=== PATIENT | female | born 1990 | race Caucasian/White ===

== ENCOUNTER 2024-06-20 18:59 | Emergency (ER) | payer OTHER, SELFPAY ==
--- NOTE | ~2024-06-20 | XR_ITS ---
EXAMINATION: XR CHEST CLINICAL INFORMATION: Chest tightness. Dyspnea. COMPARISON: None available. TECHNIQUE: PA view of the chest was obtained. FINDINGS: No significant abnormality is noted involving the heart, lungs, mediastinum, bony thorax or soft tissues. XR/XR chest 1V IMPRESSION: Normal PA view of the chest. Electronically signed by: Linus Sebastian MD 06/20/2024 08:59 PM EDT RP
--- NOTE | 2024-06-20 19:07 | ECG_ITS ---
Test Reason : CP Blood Pressure : / mmHG Vent. Rate : 105 BPM Atrial Rate : 105 BPM P-R Int : 132 ms QRS Dur : 070 ms QT Int : 292 ms P-R-T Axes : 041 038 050 degrees QTc Int : 385 ms Sinus tachycardia Abnormal ECG No previous ECGs available Referred By: Generic ED Physician Electronically Signed By:AWAIS JASSO
[2024-06-20 19:21] VITALS: BP 132/87; PULSE 102; RESP 16; TEMP 37.2; O2SAT 98; BMI 29.2
[2024-06-20 20:15] LABS: MANUAL DIFF FLAG NO
[2024-06-20 20:20] LABS: Basophils Percent Auto 0.5 % (0-2); Eosinophils Percent Auto 1.1 % (0-4); Hematocrit 36.6 % (37.0-47.0); Hemoglobin 12.6 g/dl (12.0-16.0); Imm Gran Abs Auto 0.01 X10*3/uL (0.00-0.03); Imm Gran Pct Auto 0.3 % (0.0-0.4); Lymphocytes Absolute Auto 1.3 X10*3/uL (1.2-4.9); Lymphocytes Percent Auto 35.9 % (20-40); Mean Corpuscular HGB Conc 34.4 g/dl (31.0-35.0); Mean Corpuscular Hemoglobin 29.3 pg (27.0-33.0); Mean Corpuscular Volume 85.1 fL (80.0-98.0); Mean Platelet Volume 9.8 fL (9.4-12.3); Monocytes Absolute Auto 0.5 X10*3/uL (0.1-1.2); Neutrophils Absolute Auto 1.8 x10*3/uL (2.0-8.3); Neutrophils Percent Auto 49.2 % (45-73); Platelet Count 219 X10*3/uL (160-400); White Blood Count 3.7 X10*3/uL (4.8-10.8)
[2024-06-20 20:38] LABS: Anion Gap 11 (12-20); Blood Urea Nitrogen 8 mg/dL (9-16); Calcium 8.7 mg/dL (8.4-10.2); Carbon Dioxide 25 mmol/L (22-29); Chloride 106 mmol/L (96-108); Creatinine Clr Calc Pharmacy 103.9; Estimated Glomerular Filt Rate > 60; Glucose Random 110 mg/dL (60-115); Potassium 3.7 mmol/L (3.3-5.1); Sodium 138 mmol/L (135-145)
[2024-06-20 20:40] LABS: COVID-19 Test Negative (Negative); IDNOW Serial# 152EDE1D
[2024-06-20 20:41] LABS: IDNOW Serial# 08D9AD1C; Influenza A Negative (Negative); Influenza B2 Negative (Negative)
[2024-06-20 20:48] LABS: Troponin-I High Sensitivity < 2.7 ng/L (<3.5-17.0)
[2024-06-20] MEDS: Ibuprofen 600 MG TABLET PO (21:05)
[2024-06-20 23:01] VITALS: BP 111/77; PULSE 83; RESP 18; TEMP 37.2; O2SAT 99
--- NOTE | 2024-06-20 23:29 | ED.GENADULT ---
HPI - General Adult General Chief complaint: General Medical Stated complaint: Chest tightness, hx pericarditis Time Seen by Provider: 06/20/24 23:29 History of Present Illness ED Provider: Paul HERZOG narrative: The patient is a 33-year-old female who says that 2 years ago she had an episode of pericarditis after giving . She was treated and recovered. She has been doing well since then. Yesterday she says that she felt ?like I got hit with a ton of bricks. ? She says she had a lot of body aches and felt as if she had the flu. She also developed a sense of tightness in her chest and she had palpitations when she was laying down. Today she continued to have tightness in the chest and continuing to have body aches in decided that she should get checked with the an EKG. She went to an urgent care where she was referred to the emergency room. She has had no pain or swelling in her calves. No unilateral swelling. No fever, sweats, chills. She has tightness in her chest but it is not really worse when she takes a deep breath. She does not feel short of breath currently. No nausea or vomiting. Related Data Allergies Allergy/AdvReac Type Severity Reaction Status Date / Time No Known Allergies Allergy Verified 06/20/24 19:23 Review of Systems Review of Systems: Yes all other systems are reviewed and are negative [facility] Social History Social History Advance Directives: No Advance Directives Information Provided: No Physical Exam ED Vital Signs: Vital Signs - 24 hr 06/20/24 23:01 06/21/24 00:13 Temperature 99.0 F 99.0 F Pulse Rate 83 82 Respiratory Rate 18 14 Blood Pressure 111/77 107/69 Pulse Oximetry 99 98 Oxygen Delivery Method Room Air Room Air BMI result Body Mass Index 29.2 Const Other: The patient is awake, alert, pleasant, cooperative. She does not appear acutely ill. At the time that I saw her she was not tachycardic and had an oxygen saturation of 99% on room air. She looks entirely well. HENMT Other: Face is symmetrical. Mucous membranes moist. Posterior pharynx is normal. Eyes Other: Pupils are round equal, conjunctivae are clear, extraocular movements intact. Neck Other: No cervical adenopathy. No swelling. No tenderness. Chest Other: No definite reproducible chest wall tenderness. Resp Effort & Inspection: normal respiratory effort Auscultation: clear to auscultation bilaterally Cardio Rate: regular rate Rhythm: regular rhythm Heart sounds: S1 normal heart sound present and S2 normal heart sound present GI Other: Abdomen is flat, soft, and nontender. Skin Other: Skin is dry and unremarkable. Neuro Other: The patient is awake and alert with a normal mental status. Cranial nerves are intact. She moves her extremities normally. She is neurologically intact Extrem Other: no calf swelling or tenderness. No asymmetry. No edema. Medications Administered Discontinued Medications Generic Name Dose Route Start Last Admin Trade Name Freq PRN Reason Stop Dose Admin Ibuprofen 600 mg 06/20/24 21:00 06/20/24 21:05 Ibuprofen 600 Mg Tablet PO 06/20/24 21:01 600 mg ONCE ONE Administration Medical Decision Making Medical Decision Making [facility] Narrative: The patient is a 33-year-old female who came to the emergency room after 1st going to an urgent care center. She says that she had some kind of a episode a couple of years ago when she had some kind of pericarditis that has subsequently resolved. She comes to the emergency room with 2 days of flu-like symptoms. She has some tightness in her chest but she also has a sense of tightness and body aches in most of her body. She does not really have any pleuritic discomfort and she said she did not feel particularly short of breath. Clinically her description of the symptoms was not highly suggestive of a pulmonary embolism. Your testing in the emergency room showed an EKG with sinus tachycardia at 105 beats per minute. No definite acute findings otherwise. Chest x-ray Is negative. CBC shows a mildly low white count with a differential possibly consistent with a viral syndrome. Her COVID test is negative. Her influenza swab is negative. I spoke to her about possibly doing D-dimer testing to ensure she does not have a pulmonary embolism but we both agreed that her symptoms are not highly suggestive of a pulmonary embolism and therefore we did not pursue that. She seemed to be feeling somewhat better and was comfortable being discharged with an essentially negative workup. She was advised to follow up with her PCP or return to the ER if worse. Lab Data 06/20/24 20:08 06/20/24 20:08 Labs: Lab Results 06/20/24 06/20/24 Range/Units 20:08 23:13 WBC 3.7 L (4.8-10.8) X10*3/uL RBC 4.30 (4.20-5.50) X10*6/uL Hgb 12.6 (12.0-16.0) g/dl Hct 36.6 L (37.0-47.0) % MCV 85.1 (80.0-98.0) fL MCH 29.3 (27.0-33.0) pg MCHC 34.4 (31.0-35.0) g/dl RDW 12.0 (11.0-16.0) % Plt Count 219 (160-400) X10*3/uL MPV 9.8 (9.4-12.3) fL Immature Gran % (Auto) 0.3 (0.0-0.4) % Neut % (Auto) 49.2 (45-73) % Lymph % (Auto) 35.9 (20-40) % [place] % (Auto) 13.0 H (2-11) % Eos % (Auto) 1.1 (0-4) % Baso % (Auto) 0.5 (0-2) % Lymph # (Auto) 1.3 (1.2-4.9) X10*3/uL [place] # (Auto) 0.5 (0.1-1.2) X10*3/uL Eos # (Auto) 0.0 (0.0-0.4) X10*3/uL Baso # (Auto) 0.0 (0.0-0.2) X10*3/uL Abs Immat Gran (auto) 0.01 (0.00-0.03) X10*3/uL Absolute Neuts (auto) 1.8 L (2.0-8.3) x10*3/uL Absolute Nucleated RBC 0.000 (0.0-0.012) X10*3/uL Nucleated RBC % (auto) 0.0 (0.0-0.2) /100WBC Sodium 138 (135-145) mmol/L Potassium 3.7 (3.3-5.1) mmol/L Chloride 106 (96-108) mmol/L Carbon Dioxide 25 (22-29) mmol/L Anion Gap 11 L (12-20) BUN 8 L (9-16) mg/dL Creatinine 0.76 (0.5-1.4) mg/dL Estim Creat Clear Calc 103.9 Estimated GFR > 60 Random Glucose 110 (60-115) mg/dL Calcium 8.7 (8.4-10.2) mg/dL Total Bilirubin 0.4 (0.0-1.0) mg/dL Direct Bilirubin 0.1 (0.0-0.5) mg/dL AST 22 (5-31) U/L ALT 31 (0-31) U/L Alkaline Phosphatase 89 (39-117) U/L Troponin I High Sens < 2.7 (<3.5-17.0) ng/L C-Reactive Protein 1.82 H (< or = 0.50) mg/dL Total Protein 6.7 (6.5-8.0) g/dL Albumin 3.9 (3.5-5.0) g/dL Urine Color Dark Yellow Urine Appearance Clear Urine pH 5.5 (5.0-9.0) Ur Specific [place] 1.025 (1.005-1.025) Urine Protein 30 (1+) H (Neg-Trace) mg/dL Urine Glucose (UA) Negative (Negative) mg/dL Urine Ketones Trace (Negative) mg/dL Urine Blood Large (3+) H (Negative) Urine Nitrite Negative (Negative) Ur Leukocyte Esterase Negative (Negative) Urine RBC 6-10 H (0-2) /HPF Urine WBC 0-5 (0-5) /HPF Ur Squamous Epith Cells 0-2 (0-2) /HPF Urine Bacteria None Seen (None Seen) Hyaline Casts 0-2 (0-2) /LPF Urine Test NEGATIVE (NEGATIVE) COVID-19 ([place]) Negative (Negative) COVID-19 Clin Com See Note Influenza Type A ([place]) Negative (Negative) Influenza Type B ([place]) Negative (Negative) Influenza A & B Note See Note Discharge Plan Discharge Clinical Impression: Chest pain, Body aches Patient Disposition: Home, Self-Care Additional Instructions: Your screening testing in the emergency room today seems reassuring. I think it is unlikely any acutely dangerous process is at work. Please rest and take it easy over the next couple of days. Use ibuprofen and acetaminophen as needed for discomfort. Please contact your regular doctor's office on Saturday if you are not feeling better and make a follow up appointment for a 2nd opinion. If at any point you feel significantly worse, especially if you feel significantly short of breath or breathing is painful, or if you develop a fever, return to the emergency department. Referrals: Zeus Coto MD [Primary Care Provider] - (body aches, chest pains) Interventions: ED Discharge Assessment Last Done: 06/21/24 00:13 Discharge Date/Time: 06/21/24 00:21 Print Language: Macedonian
[2024-06-20 23:43] LABS: Appearance Urine Clear; Color Urine Dark Yellow; Glucose Urine UA Negative (Negative); Leukocyte Esterase Urine Negative (Negative); Nitrite Urine Negative (Negative); PH 5.5 (5.0-9.0); Specific Gravity - Urine 1.025 (1.005-1.025); UMIC TRIGGER UACC YES; Urine Blood Large (3+) (Negative); Urine Ketones Trace mg/dL (Negative); Urine Protein 30 (1+) mg/dL (Neg-Trace)
[2024-06-20 23:45] LABS: UPreg QC Valid YES; Urine Pregnancy NEGATIVE (NEGATIVE)
[2024-06-20 23:48] LABS: Bacteria Urine None Seen (None Seen); Hyaline Casts Urine 0-2 /LPF (0-2); Squamous Epithelial Cell Urine 0-2 /HPF (0-2); WBC Urine 0-5 /HPF (0-5)
[2024-06-21 00:03] LABS: C Reactive Protein 1.82 mg/dL (< or = 0.50)
[2024-06-21 00:06] LABS: Alanine Aminotransferase 31 U/L (0-31); Albumin Level 3.9 g/dL (3.5-5.0); Alkaline Phosphatase 89 U/L (39-117); Aspartate Amino Transferase 22 U/L (5-31); Bilirubin Direct 0.1 mg/dL (0.0-0.5); Bilirubin Total 0.4 mg/dL (0.0-1.0); Total Protein 6.7 g/dL (6.5-8.0)
[2024-06-21 00:13] VITALS: BP 107/69; PULSE 82; RESP 14; TEMP 37.2; O2SAT 98
== END 2024-06-21 00:21 | disposition home or self-care (01) ==
PROVIDERS: Emergency Provider Emergency Medicine; PCP Internal Medicine
DX: R07.9 Chest pain, unspecified (principal); R06.00 Dyspnea, unspecified; R00.0 Tachycardia, unspecified; Z11.52 Encounter for screening for COVID-19
CPT/HCPCS: 36415; 71045; 80048; 80076; 81001; 81025; 84484; 85025; 86140; 87502; 87635; 93005; 99284

== ENCOUNTER 2025-01-23 18:39 | Emergency (ER) | payer BC, SELFPAY ==
--- NOTE | ~2025-01-23 | US_ITS ---
CLINICAL HISTORY: bilateral lower abd pain US pelvis transabdominal and transvaginal with Doppler Comparison: CT/SR - CT ABDOMEN PELVIS W IV CON - 01/23/25 22:09 EDT Findings: Transabdominal scanning performed for overall anatomy. Transvaginal scanning performed for additional detail. Anteverted uterus is 8.8 cm length. Normal myometrium. No endometrial lesion, 11 mm thickness. Right ovary 3.1 x 2.3 x 2.5 cm. Left ovary 3.2 x 1.8 x 2.0 cm. Normal color Doppler with arterial/venous spectral tracing of both ovaries. Normal morphology of both ovaries. No large cysts or masses. Trace free fluid in the cul-de-sac. IMPRESSION: 1. Normal pelvic ultrasound with Doppler. No evidence of ovarian torsion. This document has been electronically signed by: Chavez Urbina MD on 01/23/2025 23:15:52
--- NOTE | ~2025-01-23 | CT_ITS ---
CLINICAL HISTORY: bilat lower quadrant pain, r o tuboovarian abcsess CT abdomen and pelvis with contrast Comparison: None Findings: The lung bases are clear. Bilateral breast implants. Unremarkable gallbladder and solid organs. No urolithiasis. Proximal small bowel mural thickening in the left abdomen can be seen with mild enteritis. No bowel obstruction. Prominent inguinal nodes, nonspecific. Right corpus luteum cyst. Suspect ruptured right corpus luteum cyst with trace free pelvic fluid. Normal appendix. Scattered colonic diverticulosis without diverticulitis or colitis. Trace free pelvic fluid. Circumferential bladder wall thickening. The bones are intact. Likely left Bartholin gland cysts measuring 1.3 cm. IMPRESSION: 1. Suspect ruptured right corpus luteum cyst with trace free pelvic fluid. 2. Circumferential bladder wall thickening may be related to degree of underdistention or mild cystitis. 3. Possible mild left-sided enteritis. This document has been electronically signed by: Endy Triana MD on 01/23/2025 22:46:59
[2025-01-23 18:44] VITALS: BP 129/85; PULSE 104; RESP 18; TEMP 37; O2SAT 100; BMI 29.0
--- NOTE | 2025-01-23 18:45 | ED.ABDPAIN ---
HPI - Abdominal Pain General Chief Complaint: Abdominal Pain Stated Complaint: ovarian pain Time Seen by Provider: 01/23/25 21:03 Source: patient Mode of arrival: ambulatory Limitations: no limitations History of Present Illness ED Provider: Dr. Lizzie Pressley HPI narrative: Patient comes to the emergency room complaining of vaginal discharge and bilateral lower quadrant pain. Patient states that about 2 weeks, she removed her NuvaRing . Patient states that she noted that she had a different looking discharge and shortly after started developing pain. Patient states that she has not had any fever chills, no hematuria or dysuria. Patient denies any significant malodorous odor from the vaginal discharge. Patient denies any concern for . Related Data Previous Rx's ?Medication ?Instructions ?Recorded miconazole nitrate 4 % (200 mg)-2 1 appful vaginal BEDTIME 3 days 01/23/25 % (9 gram)vaginal,prefill #24 grams appl,cream (Miconazole-3) Allergies Allergy/AdvReac Type Severity Reaction Status Date / Time No Known Allergies Allergy Verified 01/23/25 18:46 Review of Systems Review of Systems Constitutional : No Weight loss, No Fever, No Chills, No Night Sweats, No Fatigue, No Malaise ENT/Mouth : No Hearing loss, No Ear Pain, No Nasal Congestion, No Sinus Pain, No Hoarseness, No sore throat, No Rhinorrhea, No Swallowing Difficulty Eyes: No Eye Pain, No Swelling, No Redness, No Foreign Body, No Discharge, No Vision Changes Cardiovascular : No Chest Pain, No SOB, No Dyspnea on Exertion, No Orthopnea, No Edema, No Palpitations Respiratory : No Cough, No Sputum, No Wheezing, No Smoke Exposure, No Dyspnea Gastrointestinal : No Nausea, No Vomiting, No Diarrhea, No Constipation, complaining of mild bilateral lower quadrant pain Genitourinary : Complaining of copious vaginal discharge, No Dysuria, No Urinary Frequency, No Hematuria, No Urinary Incontinence, No Urgency, No Flank Pain, No Urinary Flow Changes, No Hesitancy Musculoskeletal : No joint pain, No Myalgias, No Joint Swelling Skin : No Skin Lesions, No rash Neuro : No Weakness, No Numbness, No Paresthesias, No Loss of Consciousness, No Dizziness, No Headache Psych : No Anxiety/Panic, No Depression, No SI/HI/AH/VH, No Social Issues, Heme/Lymph: No Bruising, No Bleeding,No Lymphadenopathy Endocrine : No Polyuria, No Polydipsia, No Temperature Intolerance [facility] Past Medical History Medical History ADHD Social History Social History Smoked in Last 30 Days: No Use of substances other than those prescribed or required for medical reasons: Yes Substance Use Type: Marijuana Substance Use Frequency: Daily Advance Directives: No Advance Directives Information Provided: No Patient : No Physical Exam ED Vital Signs: Vital Signs - 24 hr 01/23/25 18:44 01/23/25 20:02 01/23/25 21:56 Temperature 98.6 F 98.5 F 98.0 F Pulse Rate 104 H 87 88 Respiratory Rate 18 16 18 Blood Pressure 129/85 119/71 111/72 Pulse Oximetry 100 100 99 Oxygen Delivery Method Room Air Room Air Room Air BMI result Body Mass Index 29.0 Const Other: Appearance: Alert. Oriented X3. No acute distress. Eyes: Pupils equal, round and reactive to light. ENT: Pharynx normal. Neck: Normal inspection. Neck supple. No lymph nodes noted. No crepitus CVS: Normal heart rate and rhythm. Pulses normal. Normal S1 and S2 Respiratory: No respiratory distress. Breath sounds normal. No Wheezing. No rales : There is copious college cheese like discharge, negative general ear sign Abdomen: Soft and nontender. No rigidity. No distention. Skin: Skin warm and dry. Normal skin color. Normal skin turgor. Extremities: No lower extremity edema. No Lacerations. No Rash Neuro: Oriented X 3. No motor deficit. No sensory deficit. Moving all extremities. No slurred speech. CN 2 through 12 grossly intact Psych: calm, cooperative, normal affect Course Course Course Narrative: This is an RME performed by Neil Lemus CNP: Additional HPI, ROS, PE not included below will be deferred to primary provider. Patient is a 34-year-old female who presents to the emergency department for evaluation. She states that she noticed 1-2 weeks ago she had abnormal vaginal discharge but did not find it to be malodorous. She is not certain whether there may be any yeast infection. She does state that she had her last menstrual cycle a few weeks ago. As experiencing bilateral lower abdominal/pelvic pain right worse than left. Denies dysuria, urinary frequency. Denies concern for . She is noted to be tachycardic with pulse in the 110's, states pulse is typically high which she has attributed to her Adderall usage as well as nicotine vape Plan: labs, Urinalysis, BV panel, CT/NG, +/- pelvic examination per primary provider. Medical Decision Making Medical Decision Making [facility] Narrative: My interpretation of labs: Patient's white blood cell count 12.4, no significant abnormality in patient's chemistry, normal LFTs. Urinalysis negative for UTI, test negative Serology test results for gonorrhea, chlamydia, bacterial vaginosis and Trichomonas will not become available today Physical exam: Copious cut edge like cheese discharge. Ultrasound: Negative for torsion CT scan: Suspected ruptured right corpus luteum cyst with trace pelvic fluid, which is likely the source of patient's discomfort I discussed the above-mentioned with the patient, patient feels well, ready for discharge Differential Diagnosis Differential Diagnoses: The differential diagnosis associated with the presentation includes (Ovarian torsion, ovarian cyst, cyst rupture, candidiasis) Lab Data [facility] Lab Attestation statement: I reviewed the patient's lab results. 01/23/25 19:07 01/23/25 19:07 Labs: Lab Results 01/23/25 Range/Units 19:07 WBC 12.4 H (4.8-10.8) X10*3/uL RBC 4.58 (4.20-5.50) X10*6/uL Hgb 13.3 (12.0-16.0) g/dl Hct 39.1 (37.0-47.0) % MCV 85.4 (80.0-98.0) fL MCH 29.0 (27.0-33.0) pg MCHC 34.0 (31.0-35.0) g/dl RDW 12.1 (11.0-16.0) % Plt Count 297 D (160-400) X10*3/uL MPV 10.4 (9.4-12.3) fL Immature Gran % (Auto) 0.4 (0.0-0.4) % Neut % (Auto) 65.4 (45-73) % Lymph % (Auto) 25.6 (20-40) % [place] % (Auto) 6.1 (2-11) % Eos % (Auto) 1.8 (0-4) % Baso % (Auto) 0.7 (0-2) % Lymph # (Auto) 3.2 (1.2-4.9) X10*3/uL [place] # (Auto) 0.8 (0.1-1.2) X10*3/uL Eos # (Auto) 0.2 (0.0-0.4) X10*3/uL Baso # (Auto) 0.1 (0.0-0.2) X10*3/uL Abs Immat Gran (auto) 0.05 H (0.00-0.03) X10*3/uL Absolute Neuts (auto) 8.1 (2.0-8.3) x10*3/uL Absolute Nucleated RBC 0.000 (0.0-0.012) X10*3/uL Nucleated RBC % (auto) 0.0 (0.0-0.2) /100WBC Sodium 142 (135-145) mmol/L Potassium 3.9 (3.3-5.1) mmol/L Chloride 107 (96-108) mmol/L Carbon Dioxide 26 (22-29) mmol/L Anion Gap 13 (12-20) BUN 8 L (9-16) mg/dL Creatinine 0.68 (0.5-1.4) mg/dL Estim Creat Clear Calc 114.6 Estimated GFR > 60 Random Glucose 78 (60-115) mg/dL Calcium 9.2 (8.4-10.2) mg/dL Total Bilirubin 0.3 (0.0-1.0) mg/dL AST 27 (5-31) U/L ALT 32 H (0-31) U/L Alkaline Phosphatase 87 (39-117) U/L Total Protein 6.8 (6.5-8.0) g/dL Albumin 4.3 (3.5-5.0) g/dL Urine Color Dark Yellow Urine Appearance Clear Urine pH 6.0 (5.0-9.0) Ur Specific [place] 1.025 (1.005-1.025) Urine Protein Trace (Neg-Trace) mg/dL Urine Glucose (UA) Negative (Negative) mg/dL Urine Ketones Trace (Negative) mg/dL Urine Blood Negative (Negative) Urine Nitrite Negative (Negative) Ur Leukocyte Esterase Small (1+) H (Negative) Urine RBC 0-2 (0-2) /HPF Urine WBC 6-10 (0-5) /HPF Ur Squamous Epith Cells 6-10 (0-2) /HPF Urine Bacteria Trace (None Seen) Hyaline Casts 0-2 (0-2) /LPF Urine Yeast Present Urine Test NEGATIVE (NEGATIVE) Medications Administered Discontinued Medications Generic Name Dose Route Start Last Admin Trade Name Tetoq PRN Reason Stop Dose Admin Iohexol 85 ml 01/23/25 22:15 01/23/25 22:15 Iohexol 350 Mg/Ml 100 Ml Infus..Btl IV 01/23/25 22:16 85 ml ONCE ONE Administration Discharge Plan Discharge Clinical Impression: Rupture of cyst of right ovary, Candidiasis of genitalia in female Patient Disposition: Home, Self-Care Instructions: Ovarian Cyst (ED), Yeast Infection (ED) Additional Instructions: Please follow-up with your primary care physician tomorrow. If you have any worsening or new symptoms, please return to the emergency room or call 911 Prescriptions: New miconazole nitrate [Miconazole-3] 4 % (200 mg)- 2 % (9 gram) comb pack,prefill appl, cream 1 appful vaginal BEDTIME 3 Days Qty: 24 0RF Rx Instructions: as vaginal cream Print Language: Niuean
--- NOTE | 2025-01-23 18:48 | ECG_ITS ---
Test Reason : TACHYCARDIA Blood Pressure : */* mmHG Vent. Rate : 81 BPM Atrial Rate : 81 BPM P-R Int : 142 ms QRS Dur : 78 ms QT Int : 332 ms P-R-T Axes : 19 29 38 degrees QTcB Int : 385 ms Normal sinus rhythm Normal ECG When compared with ECG of 20-Jun-2024 19:04, No significant change was found Referred By: Nasima Lemus Electronically Signed By: YINA CLAROS
[2025-01-23 19:17] LABS: MANUAL DIFF FLAG NO
[2025-01-23 19:19] LABS: Basophils Absolute Auto 0.1 X10*3/uL (0.0-0.2); Basophils Percent Auto 0.7 % (0-2); Eosinophils Absolute Auto 0.2 X10*3/uL (0.0-0.4); Eosinophils Percent Auto 1.8 % (0-4); Hematocrit 39.1 % (37.0-47.0); Hemoglobin 13.3 g/dl (12.0-16.0); Imm Gran Abs Auto 0.05 X10*3/uL (0.00-0.03); Imm Gran Pct Auto 0.4 % (0.0-0.4); Lymphocytes Absolute Auto 3.2 X10*3/uL (1.2-4.9); Lymphocytes Percent Auto 25.6 % (20-40); Mean Corpuscular Volume 85.4 fL (80.0-98.0); Mean Platelet Volume 10.4 fL (9.4-12.3); Monocytes Absolute Auto 0.8 X10*3/uL (0.1-1.2); Monocytes Percent Auto 6.1 % (2-11); Neutrophils Absolute Auto 8.1 x10*3/uL (2.0-8.3); Neutrophils Percent Auto 65.4 % (45-73); Platelet Count 297 X10*3/uL (160-400); Red Blood Count 4.58 X10*6/uL (4.20-5.50); Red Cell Distribution Width 12.1 % (11.0-16.0); White Blood Count 12.4 X10*3/uL (4.8-10.8)
[2025-01-23 19:21] LABS: Appearance Urine Clear; Color Urine Dark Yellow; Glucose Urine UA Negative (Negative); Leukocyte Esterase Urine Small (1+) (Negative); Nitrite Urine Negative (Negative); Specific Gravity - Urine 1.025 (1.005-1.025); UMIC TRIGGER UACC YES; Urine Blood Negative (Negative); Urine Ketones Trace mg/dL (Negative); Urine Protein Trace mg/dL (Neg-Trace)
[2025-01-23 19:27] LABS: Urine Pregnancy NEGATIVE (NEGATIVE)
[2025-01-23 19:28] LABS: UPreg QC Valid YES
[2025-01-23 19:34] LABS: Bacteria Urine Trace (None Seen); Hyaline Casts Urine 0-2 /LPF (0-2); RBC Urine 0-2 /HPF (0-2); UACC Culture Trigger YES
[2025-01-23 19:38] LABS: Alanine Aminotransferase 32 U/L (0-31); Albumin Level 4.3 g/dL (3.5-5.0); Alkaline Phosphatase 87 U/L (39-117); Anion Gap 13 (12-20); Aspartate Amino Transferase 27 U/L (5-31); Bilirubin Total 0.3 mg/dL (0.0-1.0); Blood Urea Nitrogen 8 mg/dL (9-16); Calcium 9.2 mg/dL (8.4-10.2); Carbon Dioxide 26 mmol/L (22-29); Chloride 107 mmol/L (96-108); Creatinine Clr Calc Pharmacy 114.6; Estimated Glomerular Filt Rate > 60; Glucose Random 78 mg/dL (60-115); Potassium 3.9 mmol/L (3.3-5.1); Sodium 142 mmol/L (135-145); Total Protein 6.8 g/dL (6.5-8.0)
[2025-01-23 20:02] VITALS: BP 119/71; PULSE 87; RESP 16; TEMP 36.9; O2SAT 100
[2025-01-23 21:56] VITALS: BP 111/72; PULSE 88; RESP 18; TEMP 36.7; O2SAT 99
[2025-01-23] MEDS: iohexoL 350 MG/ML 100 ML INFUS..BTL 85 ML IV (22:15)
[2025-01-23 23:51] VITALS: BP 124/87; PULSE 84; RESP 16; TEMP 36.4; O2SAT 99
[2025-01-24 11:42] LABS: Bacterial Vaginosis PCR NEGATIVE (Negative); Candida Group PCR DETECTED (Not Detect); Candida glab krusei PCR NOT DETECTED (Not Detect); Trichomonas vaginalis PCR NOT DETECTED (Not Detect)
[2025-01-24 12:17] LABS: CT PCR NOT DETECTED (Not Detect.); NG PCR NOT DETECTED (Not Detect.)
== END 2025-01-24 00:10 | disposition home or self-care (01) ==
PROVIDERS: Nurse Practitioner Family; Emergency Provider Emergency Medicine; PCP Internal Medicine
DX: N83.201 Unspecified ovarian cyst, right side (principal); B37.31 Acute candidiasis of vulva and vagina; R10.2 Pelvic and perineal pain
CPT/HCPCS: 36415; 74177; 76830; 76856; 80053; 81001; 81025; 81515; 85025; 87086; 87491; 87591; 93005; 93975; 99284; 99285; Q9967

== ENCOUNTER → 2025-01-23 18:48 | Outpatient (BNV) | payer BC, SELFPAY | PROVIDERS: Emergency Provider Emergency Medicine; PCP Internal Medicine; Visit Provider Internal Medicine | DX: R00.0 Tachycardia, unspecified (principal) | CPT/HCPCS: 93010 ==

== ENCOUNTER → 2025-01-23 21:12 | Outpatient (BNV) | payer BC, SELFPAY | PROVIDERS: Emergency Provider Emergency Medicine; PCP Internal Medicine; Visit Provider Radiology Diagnostic Radiology | DX: R10.9 Unspecified abdominal pain (principal) | CPT/HCPCS: 93975 ==

== ENCOUNTER 2025-03-29 11:30 | Emergency (ER) | payer BC, SELFPAY ==
[2025-03-29 11:36] VITALS: BP 106/70; PULSE 98; RESP 16; TEMP 36.9; O2SAT 97; BMI 26.5
--- NOTE | 2025-03-29 11:36 | ED_ITS ---
HPI - Nausea/Vomiting/Diarrhea General Chief complaint: Nausea/Vomiting/Diarrhea Stated complaint: Vomiting Time Seen by Provider: 03/29/25 13:22 Related Data Previous Rx's ?Medication ?Instructions ?Recorded miconazole nitrate 4 % (200 mg)-2 1 appful vaginal BED TIME 3 days 01/23/25 % (9 gram)vaginal,prefill #24 grams appl,cream (Miconazole-3) ondansetron HCl 4 mg tablet 4 mg PO Q8H PRN nausea and 03/29/25 vomiting #14 tabs Allergies Allergy/AdvReac Type Severity Reaction Status Date / Time No Known Allergies Allergy Verified 03/29/25 11:40 PMFSH Past Medical History Medical History ADHD Social History Social History Substance Use Type: Marijuana Advance Directives: No Advance Directives Information Provided: Yes Do you have a plan to hurt others: No Plan Physical Exam 2 Vital Signs: Vital Signs: Last Vital Signs Temp 98.3 F 03/29/25 16:56 Pulse 69 03/29/25 16:56 Resp 16 03/29/25 16:56 BP 103/68 03/29/25 16:56 Pulse Ox 98 03/29/25 16:56 O2 Del Method Room Air 03/29/25 16:56 BMI result Body Mass Index 26.5 Course Course Course Narrative: This is an RME performed by Neil Lemus CNP: Additional HPI, ROS, PE not included below will be deferred to primary provider. Patient is a 34-year-old female who presents emergency department for evaluation, states that she lately has not been able to eat very much. She is experiencing yesterday and today persistent nausea, postprandial vomiting 30minute - 1 hour, loose stools shakiness and lightheadedness. Denies any associated pain. States this typically occurs with dosage increase her Zepbound but has not had a dosage increase in the past 2 weeks. Most recent Zepbound 7.5mg SQ injection was Saturday03/26/2025. Plan: Serum labs, urinalysis Reevaluation(s) Reevaluation #1: See additional note dated 03/29/[address] Pete Medications Administered Discontinued Medications Generic Name Dose Route Start Last Admin Trade Name Yomi PRN Reason Stop Dose Admin Lactated Ringer's 1,000 mls @ 999 mls/hr 03/29/25 13:45 03/29/25 14:47 Lr IV 03/29/25 14:45 Infused .Q1H1M HOLLY Infusion Ondansetron HCl 4 mg 03/29/25 13:27 03/29/25 13:49 Ondansetron Hcl 4 Mg/2 Ml Vial IVPUSH 03/29/25 13:28 4 mg ONCE ONE Administration Medical Decision Making Lab Data 03/29/25 12:03 03/29/25 12:03 Labs: Lab Results 03/29/25 03/29/25 Range/Units 12:02 12:03 WBC 8.3 (4.8-10.8) X10*3/uL RBC 4.56 (4.20-5.50) X10*6/uL Hgb 13.2 (12.0-16.0) g/dl Hct 38.3 (37.0-47.0) % MCV 84.0 (80.0-98.0) fL MCH 28.9 (27.0-33.0) pg MCHC 34.5 (31.0-35.0) g/dl RDW 12.4 (11.0-16.0) % Plt Count 275 (160-400) X10*3/uL MPV 10.7 (9.4-12.3) fL Immature Gran % (Auto) 0.2 (0.0-0.4) % Neut % (Auto) 71.5 (45-73) % Lymph % (Auto) 18.3 L (20-40) % [place] % (Auto) 7.7 (2-11) % Eos % (Auto) 1.7 (0-4) % Baso % (Auto) 0.6 (0-2) % Lymph # (Auto) 1.5 (1.2-4.9) X10*3/uL [place] # (Auto) 0.6 (0.1-1.2) X10*3/uL Eos # (Auto) 0.1 (0.0-0.4) X10*3/uL Baso # (Auto) 0.1 (0.0-0.2) X10*3/uL Abs Immat Gran (auto) 0.02 (0.00-0.03) X10*3/uL Absolute Neuts (auto) 6.0 (2.0-8.3) x10*3/uL Absolute Nucleated RBC 0.000 (0.0-0.012) X10*3/uL Nucleated RBC % (auto) 0.0 (0.0-0.2) /100WBC Sodium 138 (135-145) mmol/L Potassium 4.1 (3.3-5.1) mmol/L Chloride 106 (96-108) mmol/L Carbon Dioxide 24 (22-29) mmol/L Anion Gap 12 (12-20) BUN 15 (9-16) mg/dL Creatinine 0.83 (0.5-1.4) mg/dL Estim Creat Clear Calc 90.0 Estimated GFR > 60 Random Glucose 85 (60-115) mg/dL Calcium 9.1 (8.4-10.2) mg/dL Total Bilirubin 0.8 (0.0-1.0) mg/dL AST 23 (5-31) U/L ALT 23 (0-31) U/L Alkaline Phosphatase 72 (39-117) U/L Total Protein 7.1 (6.5-8.0) g/dL Albumin 4.8 (3.5-5.0) g/dL Lipase 32 (8-78) U/L Urine Color Yellow Urine Appearance Clear Urine pH 5.5 (5.0-9.0) Ur Specific [place] 1.020 (1.005-1.025) Urine Protein Trace (Neg-Trace) mg/dL Urine Glucose (UA) Negative (Negative) mg/dL Urine Ketones 40 (Negative) mg/dL Urine Blood Large (3+) H (Negative) Urine Nitrite Negative (Negative) Ur Leukocyte Esterase Negative (Negative) Urine RBC >20 H (0-2) /HPF Urine WBC 0-5 (0-5) /HPF Ur Squamous Epith Cells 3-5 (0-2) /HPF Urine Bacteria None Seen (None Seen) Hyaline Casts 3-5 (0-2) /LPF Urine Test NEGATIVE (NEGATIVE) Discharge Plan Discharge Clinical Impression: Vomiting Qualifiers: Vomiting type: unspecified Nausea presence: with nausea Qualified Code(s): R 11.2 - Nausea with vomiting, unspecified Patient Disposition: Home, Self-Care Instructions: Acute Nausea and Vomiting (ED) Additional Instructions: Follow-up with your primary care physician we sent a prescription for your for Zofran to [facility] Prescriptions: New ondansetron HCl 4 mg tablet 4 mg PO Q8H PRN (Reason: nausea and vomiting) Qty: 14 0RF No Action miconazole nitrate [Miconazole-3] 4 % (200 mg)- 2 % (9 gram) comb pack,prefill appl, cream 1 appful vaginal BEDTIME 3 Days Qty: 24 0RF Rx Instructions: as vaginal cream Interventions: ED Discharge Assessment Last Done: 03/29/25 16:56 Discharge Date/Time: 03/29/25 16:58 Print Language: Tajik
[2025-03-29 12:07] LABS: MANUAL DIFF FLAG NO
[2025-03-29 12:10] LABS: Hematocrit 38.3 % (37.0-47.0); Hemoglobin 13.2 g/dl (12.0-16.0); Imm Gran Abs Auto 0.02 X10*3/uL (0.00-0.03); Imm Gran Pct Auto 0.2 % (0.0-0.4); Lymphocytes Absolute Auto 1.5 X10*3/uL (1.2-4.9); Mean Corpuscular HGB Conc 34.5 g/dl (31.0-35.0); Mean Corpuscular Hemoglobin 28.9 pg (27.0-33.0); Mean Corpuscular Volume 84.0 fL (80.0-98.0); NRBC Abs Auto 0.000 X10*3/uL (0.0-0.012); NRBC Pct Auto 0.0 /100WBC (0.0-0.2); Platelet Count 275 X10*3/uL (160-400); Red Blood Count 4.56 X10*6/uL (4.20-5.50); White Blood Count 8.3 X10*3/uL (4.8-10.8)
[2025-03-29 12:15] LABS: Appearance Urine Clear; Glucose Urine UA Negative (Negative); PH 5.5 (5.0-9.0); Specific Gravity - Urine 1.020 (1.005-1.025); UMIC TRIGGER UACC YES
[2025-03-29 12:17] LABS: UPreg QC Valid YES
[2025-03-29 12:28] LABS: Alanine Aminotransferase 23 U/L (0-31); Albumin Level 4.8 g/dL (3.5-5.0); Alkaline Phosphatase 72 U/L (39-117); Anion Gap 12 (12-20); Aspartate Amino Transferase 23 U/L (5-31); Blood Urea Nitrogen 15 mg/dL (9-16); Calcium 9.1 mg/dL (8.4-10.2); Carbon Dioxide 24 mmol/L (22-29); Chloride 106 mmol/L (96-108); Creatinine Clr Calc Pharmacy 90.0; Estimated Glomerular Filt Rate > 60; Lipase 32 U/L (8-78); Potassium 4.1 mmol/L (3.3-5.1); Sodium 138 mmol/L (135-145); Total Protein 7.1 g/dL (6.5-8.0)
--- NOTE | 2025-03-29 13:27 | ED.NAVMDI ---
HPI - Nausea/Vomiting/Diarrhea General Chief complaint: Nausea/Vomiting/Diarrhea Stated complaint: Vomiting Time Seen by Provider: 03/29/25 13:22 Source: patient Mode of arrival: ambulatory Limitations: no limitations History of Present Illness HPI Narrative: This is 34 years old female patient presented to the ED complaining of nausea vomiting unable to keep any fluids down the patient is on zip bound for weight loss. Denies any fever or chills. MD elicited complaint: nausea and vomiting Onset (ago): day(s) Description of diarrhea: blood Associated nausea: Yes Location of pain: none Exacerbating factors: none Relieving factors: none Related Data Previous Rx's ?Medication ?Instructions ?Recorded miconazole nitrate 4 % (200 mg)-2 1 appful vaginal BEDTIME 3 days 01/23/25 % (9 gram)vaginal,prefill #24 grams appl,cream (Miconazole-3) ondansetron HCl 4 mg tablet 4 mg PO Q8H PRN nausea and 03/29/25 vomiting #14 tabs Allergies Allergy/AdvReac Type Severity Reaction Status Date / Time No Known Allergies Allergy Verified 03/29/25 11:40 Review of Systems Constitutional: Constitutional: Reports no additional constitutional complaints ENT: Reports system reviewed and no additional complaints, except as documented Cardiovascular: Cardiovascular: Reports no additional cardiovascular complaints Respiratory: Respiratory: Reports no additional respiratory complaints Gastrointestinal: Gastrointestinal: Reports nausea PMFSH Past Medical History Attestation statement: The following information was validated with the patient. Medical History ADHD Social History Social History Substance Use Type: Marijuana Advance Directives: No Advance Directives Information Provided: Yes Do you have a plan to hurt others: No Plan Physical Exam Vital Signs: Vital Signs: Last Vital Signs Temp 98.5 F 03/29/25 11:36 Pulse 88 03/29/25 14:56 Resp 16 03/29/25 14:56 BP 102/61 03/29/25 14:56 Pulse Ox 97 03/29/25 11:36 O2 Del Method Room Air 03/29/25 11:36 BMI result Body Mass Index 26.5 No acute distress comfortable in the stretcher Const: General: cooperative Nutritional Appearance: average body habitus Orientation/consciousness: oriented to time and patient oriented x3 HEENT: Head: Yes normal to inspection General nose exam: Normal external nose present Face and sinus: Yes normal facial exam Neck: Neck: Yes normal visual inspection and Yes full ROM Chest: Chest palpation & inspection: normal inspection of the chest Resp: Effort & Inspection: normal respiratory effort Auscultation: clear to auscultation bilaterally Cardio: Jugular venous distension: no JVD Rate: regular rate Rhythm: regular rhythm GI: Inspection: Yes normal to inspection Palpation (GI): Soft to palpation, not firm and nontender Auscultation: normal bowel sounds Skin: General skin exam: no rashes or lesions noted Neuro: General: oriented to time and patient oriented x3 Course Reevaluation(s) Reevaluation #1: Patient is doing better labs and normal vital sign normal I think she can be discharged home I do not think she needs any imaging Time: 16:10 Medications Administered Discontinued Medications Generic Name Dose Route Start Last Admin Trade Name Freq PRN Reason Stop Dose Admin Lactated Ringer's 1,000 mls @ 999 mls/hr 03/29/25 13:45 03/29/25 14:47 Lr IV 03/29/25 14:45 Infused .Q1H1M HOLLY Infusion Ondansetron HCl 4 mg 03/29/25 13:27 03/29/25 13:49 Ondansetron Hcl 4 Mg/2 Ml Vial IVPUSH 03/29/25 13:28 4 mg ONCE ONE Administration Medical Decision Making Medical Decision Making [facility] Narrative: Patient is here complaining of nausea and vomiting unable to keep fluids down we will check labs administer IV fluids antiemetic 16:11 the patient is doing much better she is asymptomatic at this time labs are normal her symptoms are most likely related to the depth found I do not think she needs any imaging her abdomen is soft and nontender Differential Diagnosis Vomiting related to Zepbound, gastroenteritis viral syndrome Admission/Observation Consideration of admission/observation: Escalation of care including admission/observation considered Lab Data [facility] Lab Attestation statement: I reviewed the patient's lab results. 03/29/25 12:03 03/29/25 12:03 Labs: Lab Results 03/29/25 03/29/25 Range/Units 12:02 12:03 WBC 8.3 (4.8-10.8) X10*3/uL RBC 4.56 (4.20-5.50) X10*6/uL Hgb 13.2 (12.0-16.0) g/dl Hct 38.3 (37.0-47.0) % MCV 84.0 (80.0-98.0) fL MCH 28.9 (27.0-33.0) pg MCHC 34.5 (31.0-35.0) g/dl RDW 12.4 (11.0-16.0) % Plt Count 275 (160-400) X10*3/uL MPV 10.7 (9.4-12.3) fL Immature Gran % (Auto) 0.2 (0.0-0.4) % Neut % (Auto) 71.5 (45-73) % Lymph % (Auto) 18.3 L (20-40) % [place] % (Auto) 7.7 (2-11) % Eos % (Auto) 1.7 (0-4) % Baso % (Auto) 0.6 (0-2) % Lymph # (Auto) 1.5 (1.2-4.9) X10*3/uL [place] # (Auto) 0.6 (0.1-1.2) X10*3/uL Eos # (Auto) 0.1 (0.0-0.4) X10*3/uL Baso # (Auto) 0.1 (0.0-0.2) X10*3/uL Abs Immat Gran (auto) 0.02 (0.00-0.03) X10*3/uL Absolute Neuts (auto) 6.0 (2.0-8.3) x10*3/uL Absolute Nucleated RBC 0.000 (0.0-0.012) X10*3/uL Nucleated RBC % (auto) 0.0 (0.0-0.2) /100WBC Sodium 138 (135-145) mmol/L Potassium 4.1 (3.3-5.1) mmol/L Chloride 106 (96-108) mmol/L Carbon Dioxide 24 (22-29) mmol/L Anion Gap 12 (12-20) BUN 15 (9-16) mg/dL Creatinine 0.83 (0.5-1.4) mg/dL Estim Creat Clear Calc 90.0 Estimated GFR > 60 Random Glucose 85 (60-115) mg/dL Calcium 9.1 (8.4-10.2) mg/dL Total Bilirubin 0.8 (0.0-1.0) mg/dL AST 23 (5-31) U/L ALT 23 (0-31) U/L Alkaline Phosphatase 72 (39-117) U/L Total Protein 7.1 (6.5-8.0) g/dL Albumin 4.8 (3.5-5.0) g/dL Lipase 32 (8-78) U/L Urine Color Yellow Urine Appearance Clear Urine pH 5.5 (5.0-9.0) Ur Specific [place] 1.020 (1.005-1.025) Urine Protein Trace (Neg-Trace) mg/dL Urine Glucose (UA) Negative (Negative) mg/dL Urine Ketones 40 (Negative) mg/dL Urine Blood Large (3+) H (Negative) Urine Nitrite Negative (Negative) Ur Leukocyte Esterase Negative (Negative) Urine RBC >20 H (0-2) /HPF Urine WBC 0-5 (0-5) /HPF Ur Squamous Epith Cells 3-5 (0-2) /HPF Urine Bacteria None Seen (None Seen) Hyaline Casts 3-5 (0-2) /LPF Urine Test NEGATIVE (NEGATIVE) Prescription Management I considered prescription management with: Other (Zofran) Discharge Plan Discharge Clinical Impression: Vomiting Qualifiers: Vomiting type: unspecified Nausea presence: with nausea Qualified Code(s): R11.2 - Nausea with vomiting, unspecified Patient Disposition: Home, Self-Care Instructions: Acute Nausea and Vomiting (ED) Additional Instructions: Follow-up with your primary care physician we sent a prescription for your for Zofran to [facility] Prescriptions: New ondansetron HCl 4 mg tablet 4 mg PO Q8H PRN (Reason: nausea and vomiting) Qty: 14 0RF No Action miconazole nitrate [Miconazole-3] 4 % (200 mg)- 2 % (9 gram) comb pack,prefill appl, cream 1 appful vaginal BEDTIME 3 Days Qty: 24 0RF Rx Instructions: as vaginal cream Print Language: Greek
[2025-03-29] MEDS: Lactated Ringers 1,000 ML 999 ML IV (13:33)
--- OUTSIDE RECORDS SUMMARY | 2025-03-29 14:16 | XMS_ITS | Clinical Summary ---
Author Organization [facility] Address [address] [place] [address] Care Team Providers Care Survey Engineer Name Role Phone Dulce Austin MD Primary Care Provider [phone] Social History Tobacco Use Types Packs/Day Years Used Date Smoking Tobacco: Never Assessed Comments Unknown Sex and Gender Information Value Date Recorded Sex Assigned at Not on file Legal Sex Female 11:12 PM EST Gender Identity Not on file Sexual Orientation Not on file Plan of Treatment Health Maintenance Due Date Last Done Comments DTaP,Tdap,and Td Vaccines (1 - Tdap) 2011 Hepatitis B Vaccines (1 of 3 - 19+ 3-dose series) 2011 Cervical Cancer Screening: P ap Smear 2013 COVID-19 Vaccine ( - 2023-2 5 season) 2024 Depression Screening 10/23/2024 HIV Screening 10/23/2024 Hepatitis C Screening 10/23/2024 Social Influencers of Health Screening 10/23/2024 Influenza Vaccine (#1) 2025 HIB Vaccines Aged Out No longer eligi ble based on patient's age to complete this topic HPV Vaccines Aged Out No longer eligi ble based on patient's age to complete this topic Hepatitis A Vaccines Aged Out No long er eligible based on patient's age to complete this topic IPV Vaccines Aged Out No longer eligi ble based on patient's age to complete this topic MMR Vaccines Aged Out No longer eligi ble based on patient's age to complete this topic Meningococcal ACWY Vaccine Aged Out N o longer eligible based on patient's age to complete this topic Meningococcal B Vaccine Aged Out No l onger eligible based on patient's age to complete this topic Pneumococcal Vaccine: Pediat rics (0 to 5 Years) and At-Risk Patients (6 to 49 Years) Aged Out No longer eligible b ased on patient's age to complete this topic RSV Immunization Patients Un angle 20 months Aged Out No longer eligible b ased on patient's age to complete this topic Varicella Vaccines Aged Out No longer eligible based on patient's age to complete this topic Care Teams Survey Engineer Relationship Specialty Start Date End Date Dulce Austin MD [address] [place] [address] PCP - General 08/06/23
--- NOTE | 2025-03-29 14:51 | PC.NURSE ---
Pt ambulated to and from [facility] well independently. NAD No complaints.
[2025-03-29 14:52] VITALS: BP 106/65; PULSE 80; RESP 16
[2025-03-29 14:54] VITALS: BP 111/77; PULSE 98; RESP 16
[2025-03-29 14:56] VITALS: BP 102/61; PULSE 88; RESP 16
[2025-03-29 16:55] VITALS: BP 103/68; PULSE 69; RESP 16; TEMP 36.8; O2SAT 98
[2025-03-29 16:56] VITALS: BP 103/68; PULSE 69; RESP 16; TEMP 36.8; O2SAT 98
== END 2025-03-29 16:58 | disposition home or self-care (01) ==
PROVIDERS: Nurse Practitioner Family; Emergency Provider Emergency Medicine; PCP Internal Medicine
DX: R11.2 Nausea with vomiting, unspecified (principal); Z79.899 Other long term (current) drug therapy
CPT/HCPCS: 36415; 80053; 81001; 81025; 83690; 85025; 96361; 96374; 99284; J2405; J7120